=== PATIENT | female | born 1990 | race African-American/Black ===

== ENCOUNTER 2019-07-29 06:55 | Emergency (ER) | payer OTHER ==
[2019-07-29 07:04] VITALS: BP 112/61
== END 2019-07-29 09:09 | disposition left against medical advice (07) ==
LOC: ER 06:55
DX: Z53.21 Procedure and treatment not carried out due to patient leaving prior to being seen by health care provider (principal)
CPT/HCPCS: 87070; 87880

== ENCOUNTER 2020-06-13 00:56 | Emergency (ER) | payer OTHER ==
[2020-06-13 01:09] VITALS: BP 112/91
--- OUTSIDE RECORDS SUMMARY | 2020-06-14 17:47 | XMS REPORT ---
:1990 [facility] [place] [address] [place] [id number] Care Team Providers Name Role Phone KITTY FELICIANO Attending Clinician Unavailable Allergies, Adverse Reactions, Alerts This patient has no known allergies or adverse reactions. Medications This patient has no known medications. Problems This patient has no known problems. Procedures This patient has no known procedures. Results This patient has no known results. Encounters Start End Encounter Admission Attending Care Care Encounter Date/Time Date/Time Type Type Clinicians Facility Department ID 2019-09-06 2019-09-06 Emergency X Candice FELICIANO [id number] 08:27:31 12:42:00 KITTY Payers Payer Name Policy Type Policy Number Effective Date Expiration D ate [facility] CHOICE/PLUS [id number] 2019 00:00:00 [employer] [id number] 2019 00:00: 00 Social History This patient has no known social history. Vital Signs This patient has no known vital signs.
== END 2020-06-13 04:24 | disposition left against medical advice (07) ==
LOC: ER 00:56
DX: Z53.21 Procedure and treatment not carried out due to patient leaving prior to being seen by health care provider (principal)

== ENCOUNTER 2020-06-25 13:30 | Observation (INO) | payer OTHER ==
[~2020-06-25 13:30] MED LIST: SUCCINYLCHOLINE CHLORIDE INJ 200 MG/10 ML VIAL ONE
[2020-06-25 14:55] LABS: APPEARANCE,URINE CLEAR; BILIRUBIN,URINE NEGATIVE (NEGATIVE); COLOR,URINE YELLOW; GLUCOSE, URINE NEGATIVE (NEGATIVE); KETONES,URINE NEGATIVE (NEGATIVE); LEUKOCYTE ESTERASE,URINE NEGATIVE (NEGATIVE); NITRITE,URINE NEGATIVE (NEGATIVE); PROTEIN,URINE NEGATIVE (NEGATIVE); URINE SPECIFIC GRAVITY 1.016; UROBILINOGEN,URINE NEGATIVE mg/dL (<2.0)
[2020-06-25 15:02] LABS: ABSOLUTE LYMPHOCYTES (AUTO) 1.8 10^3/uL (0.5-4.7); ABSOLUTE MONOCYTES (AUTO) 0.6 10^3/uL (0.1-1.4); BASOPHILS % (AUTO) 0.5 % (0-2); EOSINOPHILS % (AUTO) 0.6 % (0-6); HEMOGLOBIN 12.1 g/dL (12.0-15.5); LYMPHOCYTES % (AUTO) 23.8 % (13-45); MEAN CORPUSCULAR HEMOGLOBIN 30.1 pg (27.0-33.4); MEAN CORPUSCULAR HGB CONC 33.6 g/dL (32.0-36.0); MEAN CORPUSCULAR VOLUME 90 fl (80-97); MONOCYTES % (AUTO) 7.7 % (3-13); PLATELET COUNT 278 10^3/uL (150-450); RED BLOOD COUNT 4.02 10^6/uL (3.72-5.28); RED CELL DISTRIBUTION WIDTH 13.6 % (11.5-14.0); SEGMENTED NEUTROPHILS % (AUTO) 67.4 % (42-78); TOTAL CELLS COUNTED % (AUTO) 100 %; WHITE BLOOD COUNT 7.4 10^3/uL (4.0-10.5)
[2020-06-25] MEDS ORDERED: ONDANSETRON HCL INJ/PF 4 MG/2 ML SDV ONE (18:12)
[2020-06-25] MEDS ORDERED: MIDAZOLAM 2 MG/2 ML INJ ONE (18:12)
[2020-06-25] MEDS ORDERED: PROPOFOL INJ 200 MG/20 ML VIAL IV ONE (18:12)
[2020-06-25] MEDS ORDERED: FENTANYL CITRATE INJ/PF 100 MCG/2 ML AMPUL ONE (18:12)
[2020-06-25] MEDS ORDERED: LIDOCAINE 2% INJ-PF (20 MG/ML) 10 ML AMPUL ONE (18:12)
[2020-06-25] MEDS ORDERED: ONDANSETRON HCL INJ/PF 4 MG/2 ML SDV IV PRN (18:36)
[2020-06-25] MEDS ORDERED: MEPERIDINE HCL/PF INJ 25 MG/1 ML DISP.SYRIN IV PRN (18:36)
[2020-06-25] MEDS ORDERED: PROMETHAZINE HCL INJ 25 MG/1 ML VIAL IV PRN ×2 (18:36)
[2020-06-25] MEDS ORDERED: FENTANYL CITRATE INJ/PF 100 MCG/2 ML AMPUL IV PRN ×3 (18:36)
[2020-06-25] MEDS ORDERED: DIPHENHYDRAMINE HCL 50 MG/ML VIAL IV PRN (18:36)
[2020-06-25] MEDS ORDERED: RINGERS SOLUTION,LACTATED 1,000 ML IV PRN (18:42)
[2020-06-25] MEDS ORDERED: OXYCODONE-ACETAMINOPHEN 5-325 MG TABLET PO PRN ×2 (18:42)
[2020-06-25] MEDS ORDERED: KETOROLAC TROMETHAMINE INJ/PF 30 MG/1 ML SDV IV PRN (18:42)
[2020-06-25] MEDS ORDERED: IBUPROFEN 800 MG TABLET PO PRN (18:42)
--- NOTE | 2020-06-25 18:47 | Operative Report ---
Operative Report DATE OF SURGERY: 06/25/20 PREOPERATIVE DIAGNOSIS: Evaluate for ectopic versus intrauterine with a plateaued quant hCG of 600 POSTOPERATIVE DIAGNOSIS: Same OPERATION: Suction D&C SURGEON: KIM PELAEZ ANESTHESIA: GA TISSUE REMOVED OR ALTERED: Uterine contents COMPLICATIONS: None ESTIMATED BLOOD LOSS: Minimal INTRAOPERATIVE FINDINGS: Uterus sounded to 8 cm before and after the case PROCEDURE: Patient was sent from the office with a plateaued quant hCG of 500 on the and now 600 on the . There is some concern that she may have an ectopic versus miscarriage. It is too early for the to be seen on ultrasound however we do know that it is not a viable because of the plateaued quant hCG. We plan to do a D&C to evaluate for intrauterine versus ectopic and if no intrauterine is found we will proceed with methotrexate on Thursday. Patient was placed in supine position. Anesthesia was induced. She was placed in the dorsal lithotomy position. Her perineum and vagina were prepared and draped in a sterile fashion. Speculum was placed in the vagina and the anterior lip cervix was grasped with a tenaculum. The uterus sounded to 8 cm. The cervix was dilated. A size 8 suction curette was used to evacuate the uterine contents. There was a return of tissue and this will be sent for pathology. Repeat sound shows 8 cm. All instruments were removed from the vagina. She is placed back in supine position taken recovery in stable condition.
--- NOTE | 2020-06-25 18:50 | Discharge Summary ---
Discharge Summary (SDC) - Discharge Final Diagnosis: Evaluate for intrauterine versus ectopic with a plateaued hCG Date of Surgery: 06/25/20 Discharge Date: 06/25/20 Condition: Good Referrals: KIM PELAEZ MD [Primary Care Provider] - Discharge Diet: Regular Discharge Activity: Pelvic Rest Report the Following to Your Physician Immediately: Nausea, Increase in Pain, Fever over 101 Degrees, Unusual Bleeding
[2020-06-25] MEDS ORDERED: KETOROLAC TROMETHAMINE INJ/PF 30 MG/1 ML SDV ONE (19:07)
[2020-06-26 08:43] VITALS: BP 103/55
== END 2020-06-26 09:36 | disposition home or self-care (01) ==
LOC: 2N 13:30
PROVIDERS: ADMIT Obstetrics & Gynecology; ATTEND Obstetrics & Gynecology
DX: O02.81 Inappropriate change in quantitative human chorionic gonadotropin (hCG) in early pregnancy (principal); Z20.828 Contact with and (suspected) exposure to other viral communicable diseases
CPT/HCPCS: 86900; 86901; 36415; 86850; 84702; 85025; 0241U ×4; 81001; 88305 ×2; 01965; 59820; G0378 ×2; J2250; J3010; J1885; J0330; J2405; J2704; J3490; C9803; 1965